=== PATIENT | female | born 1935 | race Caucasian/White ===

== ENCOUNTER 2018-04-13 09:39 | Emergency (ER) | payer OTHER, BC ==
[2018-04-13 09:56] VITALS: BP 123/68; PULSE 82; TEMP 98.3; BMI 20.4
--- NOTE | 2018-04-13 10:07 | PDOC ---
History of Present Illness - General Chief Complaint: Allergic Reaction Stated Complaint: POSSIBLE ALLERGIC REACTION TO Z PACK Time Seen by Provider: 04/13/18 09:47 History Source: Patient Exam Limitations: No Limitations - History of Present Illness Initial Comments: 04/13/18 10:08 82 yo F c/ no PMH p/w fatigue and mild body aches. The patient had a recent dental procedure 5 days ago. Was discharged with azithromycin. She has been remaining adherent and taking her azithromycin as she is awaiting to perform the second part of her root canal in 4 days. Since taking the azithromycin, the patient has been having intermittent fatigue and body/joint aches. States she typically has much more energy, but has less energy than so. Denies any pain other than her post dental procedure right sided jaw pain, reproducible with opening and closing of jaw. Denies fevers, chills, nausea, vomiting, diarrhea. Patient called her dentist on the phone who thought the patient was having an allergic reaction to azithromycin and directed patient to the ER. Past History - Past Medical History Allergies/Adverse Reactions: Allergies Allergy/AdvReac Type Severity Reaction Status Date / Time Penicillins Allergy Swelling Verified 04/13/18 09:40 Home Medications: Ambulatory Orders Azithromycin [Zithromax 250mg Tablets -] 1 tab PO DAILY 04/13/18 Anemia: No Asthma: No Cancer: No Cardiac Disorders: No CVA: No COPD: No CHF: No Dementia: No Diabetes: No GI Disorders: (GERD) Disorders: No HTN: No Hypercholesterolemia: No Liver Disease: No Seizures: No Thyroid Disease: No - Surgical History Abdominal Surgery: No Appendectomy: No Cardiac Surgery: No Cholecystectomy: No Lung Surgery: No Neurologic Surgery: No Orthopedic Surgery: No - Suicide/Smoking/Psychosocial Hx Smoking Status: Yes Smoking History: Never smoked Have you smoked in the past 12 months: No Number of Cigarettes Smoked Daily: 0 Information on smoking cessation initiated: No Hx Alcohol Use: No Drug/Substance Use Hx: No Substance Use Type: None Review of Systems - Review of Systems Able to Perform ROS?: Yes Comments:: 04/13/18 10:10 GENERAL/CONSTITUTIONAL: + weakness. HEAD, EYES, EARS, NOSE AND THROAT: No change in vision. No ear pain or discharge. No sore throat. CARDIOVASCULAR: No chest pain or shortness of breath. RESPIRATORY: No cough, wheezing, or hemoptysis. GASTROINTESTINAL: No abdominal pain, nausea, vomiting, diarrhea, or decreased PO intolerance. GENITOURINARY: No dysuria, frequency, or change in urination. MUSCULOSKELETAL: No joint or muscle swelling or pain. No neck or back pain. SKIN: No rash NEUROLOGIC: No headache, vertigo, loss of consciousness, or change in strength/ sensation. ENDOCRINE: No increased thirst. No abnormal weight change. HEMATOLOGIC/LYMPHATIC: No anemia, easy bleeding, or history of blood clots. ALLERGIC/IMMUNOLOGIC: No hives or skin allergy. *Physical Exam - Vital Signs Last Vital Signs Temp Pulse Resp BP Pulse Ox 98.3 F 82 16 123/68 100 04/13/18 09:40 04/13/18 09:40 04/13/18 09:40 04/13/18 09:40 04/13/18 09:40 - Physical Exam Comments: 04/13/18 10:11 GENERAL: Awake, alert, and fully oriented, in no acute distress. HEAD: No signs of trauma EYES: EOMI, sclera anicteric, conjunctiva clear ENT: Auricles normal inspection, hearing grossly normal, nares patent, oropharynx clear without exudates. NECK: Normal ROM, supple LUNGS: Breath sounds equal, clear to auscultation bilaterally. No wheezes, and no crackles HEART: Regular rate and rhythm, normal S1 and S2, no murmurs, rubs or gallops ABDOMEN: Soft, nontender. No guarding, no rebound. No masses EXTREMITIES: Normal range of motion, no edema. No clubbing or cyanosis. No cords, erythema, or tenderness NEUROLOGICAL: Cranial nerves II through XII grossly intact. Normal speech, normal gait SKIN: Warm, Dry, normal turgor, no rashes or lesions noted. Medical Decision Making - Medical Decision Making 04/13/18 10:11 Vital Signs Temp Pulse Resp BP Pulse Ox 98.3 F 82 16 123/68 100 04/13/18 09:40 04/13/18 09:40 04/13/18 09:40 04/13/18 09:40 04/13/18 09:40 The patient is originally being treated by a dentist for a right toot/gum disease. Still awaiting a second part of the procedure. At this time, it seems unlikely that this is an allergic reaction. There is no rash, nausea, vomiting, chest pain, abdominal pain, difficulty breathing and the patient appears nontoxic and well-appearing. It is certainly possible with this dental infection that she may be fatigue because she has the tooth infection. I advised the patient to discontinue the azithromycin and to follow up with an incising machine operator. At this time, there is no airway or skin issue. Will have her observe her symptoms at home. Pt agrees with plan and would like to go home. *DC/Admit/Observation/Transfer Diagnosis at time of Disposition: Jaw pain - Discharge Dispostion Disposition: HOME Condition at time of disposition: Stable Decision to Admit order: No - Referrals Referrals: Alessandro Castillo MD [Staff Physician] - - Patient Instructions Additional Instructions: Please follow up with your dentist on Monday. Drink plenty of fluids and rest. Call to schedule an appointment. - Post Discharge Activity
== END 2018-04-13 10:21 | disposition home or self-care (01) ==
LOC: FER 09:39
DX: R68.84 Jaw pain (principal); K21.9 Gastro-esophageal reflux disease without esophagitis
CPT/HCPCS: 99281-25

== ENCOUNTER 2020-12-08 11:46 | Emergency (ER) | payer OTHER, BC | END 2020-12-08 12:40 | disposition home or self-care (01) | LOC: JVIRT 11:46 | DX: U07.1 COVID-19 (principal) | CPT/HCPCS: C9803; G2012-GT; U0003 ==

== ENCOUNTER 2023-01-13 13:03 | Emergency (ER) | payer OTHER, BC ==
[2023-01-13 13:25] VITALS: BP 145/79; PULSE 77; RESP 16; TEMP 97.9
== END 2023-01-13 13:45 | disposition home or self-care (01) ==
LOC: FER 13:03
DX: M25.561 Pain in right knee (principal); Z96.651 Presence of right artificial knee joint
CPT/HCPCS: 99281-25

== ENCOUNTER 2023-04-18 13:20 | Emergency (ER) | payer OTHER, BC ==
[2023-04-18 13:34] VITALS: BP 119/65; PULSE 74; RESP 18; TEMP 99; BMI 20.3
[2023-04-18] MEDS ORDERED: NAPROXEN 500 MG TABLET PO ONE (14:02)
[2023-04-18] MEDS ORDERED: NAPROXEN 500 MG TABLET ONE (14:04)
== END 2023-04-18 14:50 | disposition home or self-care (01) ==
LOC: FER 13:20
DX: S86.911A Strain of unspecified muscle(s) and tendon(s) at lower leg level, right leg, initial encounter (principal); X50.9XXA Other and unspecified overexertion or strenuous movements or postures, initial encounter
CPT/HCPCS: 73560-TC-RT-FY; 99283-25

== ENCOUNTER 2024-10-22 11:34 | Day surgery (SDC) | payer OTHER, BC ==
[2024-10-22] MEDS: DENOSUMAB 60 MG/ML DISP.SYRIN SQ ONE (11:55)
[2024-10-22 12:35] VITALS: BP 101/68; PULSE 65; RESP 16; TEMP 98.3
== END 2024-10-22 13:01 | disposition home or self-care (01) ==
LOC: FINFUSION 11:34 → FM/S 11:38 → FINFUSION 13:01
PROVIDERS: ATTEND Internal Medicine Endocrinology, Diabetes & Metabolism
PROC: 3E013GC Introduction of Other Therapeutic Substance into Subcutaneous Tissue, Percutaneous Approach (ICD-10-PCS; principal; 2024-10-22)
DX: M81.0 Age-related osteoporosis without current pathological fracture (principal)
CPT/HCPCS: 96372; J0897

== ENCOUNTER 2025-04-15 13:10 | Day surgery (SDC) | payer OTHER, BC ==
[2025-04-15] MEDS: DENOSUMAB 60 MG/ML DISP.SYRIN SQ ONE (13:37)
[2025-04-15 13:51] VITALS: BP 125/65; PULSE 60; RESP 17; TEMP 98.2
== END 2025-04-15 13:45 | disposition home or self-care (01) ==
LOC: FM/S 13:10 → FINJECTION 13:10
PROVIDERS: ATTEND Internal Medicine Endocrinology, Diabetes & Metabolism
PROC: 3E013GC Introduction of Other Therapeutic Substance into Subcutaneous Tissue, Percutaneous Approach (ICD-10-PCS; principal; 2025-04-15)
DX: M81.0 Age-related osteoporosis without current pathological fracture (principal)
CPT/HCPCS: 96372; J0897